=== PATIENT | female | born 1960 | race Caucasian/White ===

== ENCOUNTER 2016-11-21 21:26 | Inpatient (IN) | payer MEDICAID, OTHER, SELFPAY ==
[~2016-11-21] VITALS: Ht 167.6 cm; Wt 177.1 kg
[2016-11-21] MEDS ORDERED: ONDANSETRON 2MG/ML, 2ML IVPush ONE (22:00)
[2016-11-21] MEDS ORDERED: SODIUM CHLORIDE FLUSH 10ML SYR IVF ONE (22:00)
[2016-11-21] MEDS ORDERED: ONDANSETRON 2MG/ML, 2ML ONE (22:11)
[2016-11-21] MEDS ORDERED: MORPHINE SULFATE 4 MG/ML, 1ML ONE ×2 (22:11→22:42)
[2016-11-21 22:21] LABS: HEMATOCRIT 27.2 % (34.6-47.8); HEMOGLOBIN 8.8 g/dL (11.7-16.4); WHITE BLOOD COUNT 11.5 x10^3/uL (3.4-10)
[2016-11-21 22:24] LABS: BLOOD UREA NITROGEN 13 mg/dL (7-18)
[2016-11-21] MEDS: MORPHINE SULFATE 4 MG/ML, 1ML IVPush PRN ×2 (22:26→22:52)
[2016-11-21] MEDS ORDERED: OMNIPAQUE 350 MG/ML, 100ML BOTTLE ONE (23:34)
[2016-11-22] MEDS ORDERED: D5%-0.45% NACL 1,000 ML IV ONE (01:52)
[2016-11-22] MEDS ORDERED: ONDANSETRON 2MG/ML, 2ML IVPush PRN ×2 (02:00→05:30)
[2016-11-22] MEDS ORDERED: SODIUM CHLORIDE FLUSH 10ML SYR IVF PRN (02:00)
[2016-11-22] MEDS ORDERED: HYDROmorphone 1 MG/ML, 1ML IVPush PRN (02:00)
[2016-11-22] MEDS ORDERED: MORPHINE SULFATE 4 MG/ML, 1ML IVPush PRN (02:00)
[2016-11-22] MEDS ORDERED: MORPHINE SULFATE 4 MG/ML, 1ML ONE ×2 (02:32→19:43)
[2016-11-22] MEDS: MORPHINE SULFATE 4 MG/ML, 1ML IVPush PRN (02:37)
[2016-11-22] MEDS ORDERED: ACETAMINOPHEN 325 MG TABLET PO PRN (05:30)
[2016-11-22] MEDS ORDERED: POLYETHYLENE GLYCOL 17 GM PACKET PO PRN (05:30)
[2016-11-22] MEDS ORDERED: DOCUSATE 100 MG CAPSULE PO PRN (05:30)
[2016-11-22] MEDS: morphine SULFATE 10 MG/ML, 1ML IVPush PRN ×2 (05:51→19:50)
[2016-11-22] MEDS ORDERED: Enoxaparin 1 mg/kg protocol SQ SCH (07:00)
[2016-11-22 07:28] VITALS: BP 115/69
[2016-11-22] MEDS: SENNA/DOCUSATE TABLET PO SCH (08:54)
[2016-11-22] MEDS: INSULIN ASPART 100 UNITS/ML, PEN SQ-INSULIN SCH ×3 (08:54→21:00)
[2016-11-22] MEDS ORDERED: MIDAZOLAM 1 MG/ML, 5ML ONE (09:37)
[2016-11-22] MEDS ORDERED: FENTANYL PF 100 MCG/2ML ONE (09:37)
[2016-11-22] MEDS ORDERED: FLUMAZENIL 0.1 MG/1 ML, 5ML ONE (09:37)
[2016-11-22] MEDS ORDERED: NALOXONE 1 MG/ML, 2ML ONE (09:37)
[2016-11-22] MEDS ORDERED: LIDOCAINE 2%, 20ML ONE (10:20)
[2016-11-22 12:10] VITALS: BP 120/59
[2016-11-22] MEDS: SULFAMETH./TRIMETHOPRIM 20 ML in DEXTROSE 5% 500 ML IV SCH ×2 (12:50→21:29)
[2016-11-22] MEDS: DIPHENHYDRAMINE 25 MG CAPSULE PO PRN ×2 (13:54→21:29)
[2016-11-22] MEDS: HYDROcodone/APAP 5/325 TABLET PO PRN ×2 (17:29→22:47)
[2016-11-22 18:34] VITALS: BP 106/65
[2016-11-23] MEDS: morphine SULFATE 10 MG/ML, 1ML IVPush PRN ×5 (01:13→22:14)
[2016-11-23 01:47] VITALS: BP 106/66
[2016-11-23] MEDS: HYDROcodone/APAP 5/325 TABLET PO PRN ×4 (04:02→20:17)
[2016-11-23 05:17] LABS: HEMATOCRIT 24.9 % (34.6-47.8); HEMOGLOBIN 8.1 g/dL (11.7-16.4); WHITE BLOOD COUNT 9.5 x10^3/uL (3.4-10)
[2016-11-23 05:29] LABS: BLOOD UREA NITROGEN 11 mg/dL (7-18)
[2016-11-23] MEDS: INSULIN ASPART 100 UNITS/ML, PEN SQ-INSULIN SCH ×4 (07:00→20:20)
[2016-11-23 07:28] VITALS: BP 112/67
[2016-11-23] MEDS: DIPHENHYDRAMINE 25 MG CAPSULE PO PRN (08:14)
[2016-11-23] MEDS: SENNA/DOCUSATE TABLET PO SCH (08:14)
[2016-11-23] MEDS: LORazepam 1MG TABLET PO PRN (08:30)
[2016-11-23] MEDS: SULFAMETH./TRIMETHOPRIM 20 ML in DEXTROSE 5% 500 ML IV SCH ×2 (09:13→22:09)
[2016-11-23] MEDS: FENTANYL 50 MCG PATCH TD SCH (13:30)
[2016-11-23 13:34] VITALS: BP 123/68
[2016-11-23] MEDS: ENOXAPARIN 40 MG/0.4 ML SQ SCH (15:38)
[2016-11-23] MEDS ORDERED: DOCUSATE 100 MG CAPSULE PO PRN (16:30)
[2016-11-23] MEDS ORDERED: ACETAMINOPHEN 325 MG TABLET PO PRN (16:30)
[2016-11-23] MEDS ORDERED: POLYETHYLENE GLYCOL 17 GM PACKET PO PRN (16:30)
[2016-11-23 19:17] VITALS: BP 108/68
[2016-11-23] MEDS ORDERED: MORPHINE SULFATE 4 MG/ML, 1ML ONE (22:13)
[2016-11-24 01:36] VITALS: BP 114/71
[2016-11-24] MEDS: HYDROcodone/APAP 5/325 TABLET PO PRN (02:01)
[2016-11-24] MEDS ORDERED: MORPHINE SULFATE 4 MG/ML, 1ML ONE (03:31)
[2016-11-24] MEDS: morphine SULFATE 10 MG/ML, 1ML IVPush PRN (03:42)
[2016-11-24] MEDS: DIPHENHYDRAMINE 25 MG CAPSULE PO PRN (06:29)
[2016-11-24] MEDS: INSULIN ASPART 100 UNITS/ML, PEN SQ-INSULIN SCH ×4 (07:00→21:00)
[2016-11-24 07:18] VITALS: BP 132/74
[2016-11-24] MEDS: ONDANSETRON 2MG/ML, 2ML IVPush PRN ×2 (07:28→17:24)
[2016-11-24] MEDS: HYDROmorphone 2 MG/ML, 1ML IVPush PRN ×4 (07:43→23:00)
[2016-11-24] MEDS: SENNA/DOCUSATE TABLET PO SCH (07:48)
[2016-11-24] MEDS: GABAPENTIN 100 MG CAPSULE PO SCH ×3 (09:13→23:03)
[2016-11-24] MEDS: AMOXICILLIN/CLAV 875-125MG TABLET PO SCH ×2 (09:13→23:03)
[2016-11-24 14:46] VITALS: BP 139/75
[2016-11-24] MEDS: ENOXAPARIN 40 MG/0.4 ML SQ SCH (14:57)
[2016-11-24 18:45] VITALS: BP 125/71
[2016-11-25 01:09] VITALS: BP 117/69
[2016-11-25] MEDS: HYDROmorphone 2 MG/ML, 1ML IVPush PRN ×5 (04:59→21:38)
[2016-11-25 07:46] VITALS: BP 109/64
[2016-11-25] MEDS: INSULIN ASPART 100 UNITS/ML, PEN SQ-INSULIN SCH ×4 (07:57→21:31)
[2016-11-25] MEDS: ONDANSETRON 2MG/ML, 2ML IVPush PRN ×2 (07:58→18:34)
[2016-11-25] MEDS: GABAPENTIN 100 MG CAPSULE PO SCH ×3 (08:06→21:38)
[2016-11-25] MEDS: AMOXICILLIN/CLAV 875-125MG TABLET PO SCH ×2 (08:06→21:38)
[2016-11-25] MEDS: SENNA/DOCUSATE TABLET PO SCH (08:06)
[2016-11-25 14:54] VITALS: BP 116/71
[2016-11-25] MEDS: ENOXAPARIN 40 MG/0.4 ML SQ SCH (16:04)
[2016-11-25 20:35] VITALS: BP 109/69
[2016-11-26] MEDS: HYDROmorphone 2 MG/ML, 1ML IVPush PRN ×4 (03:19→20:43)
[2016-11-26 03:20] VITALS: BP 153/86
[2016-11-26] MEDS: LORazepam 1MG TABLET PO PRN (05:49)
[2016-11-26] MEDS: INSULIN ASPART 100 UNITS/ML, PEN SQ-INSULIN SCH ×4 (07:00→20:49)
[2016-11-26 07:23] VITALS: BP 120/71
[2016-11-26] MEDS: LACTULOSE 20 GM/30 ML UDC PO SCH ×2 (11:05→20:43)
[2016-11-26] MEDS: SENNA/DOCUSATE TABLET PO SCH (11:06)
[2016-11-26] MEDS: GABAPENTIN 100 MG CAPSULE PO SCH ×3 (11:06→20:43)
[2016-11-26] MEDS: AMOXICILLIN/CLAV 875-125MG TABLET PO SCH ×2 (11:07→20:43)
[2016-11-26 14:15] VITALS: BP 122/74
[2016-11-26] MEDS: FENTANYL 50 MCG PATCH TD SCH (14:54)
[2016-11-26] MEDS: ENOXAPARIN 40 MG/0.4 ML SQ SCH (17:16)
[2016-11-26 19:32] VITALS: BP 119/70
[2016-11-27 01:36] VITALS: BP 129/75
[2016-11-27] MEDS: HYDROmorphone 1 MG/ML, 1ML IV PRN ×4 (01:45→21:09)
[2016-11-27 05:18] LABS: HEMATOCRIT 23.4 % (34.6-47.8); HEMOGLOBIN 7.8 g/dL (11.7-16.4); WHITE BLOOD COUNT 12.6 x10^3/uL (3.4-10)
[2016-11-27 05:33] LABS: BLOOD UREA NITROGEN 15 mg/dL (7-18)
[2016-11-27 07:22] VITALS: BP 122/73
[2016-11-27] MEDS: GABAPENTIN 100 MG CAPSULE PO SCH ×3 (08:01→20:40)
[2016-11-27] MEDS: SENNA/DOCUSATE TABLET PO SCH (08:01)
[2016-11-27] MEDS: INSULIN ASPART 100 UNITS/ML, PEN SQ-INSULIN SCH ×4 (08:01→21:00)
[2016-11-27] MEDS: AMOXICILLIN/CLAV 875-125MG TABLET PO SCH ×2 (08:01→20:40)
[2016-11-27] MEDS: LACTULOSE 20 GM/30 ML UDC PO SCH ×2 (08:02→20:40)
[2016-11-27 14:22] VITALS: BP 117/77
[2016-11-27] MEDS: ENOXAPARIN 40 MG/0.4 ML SQ SCH (15:56)
[2016-11-27 19:01] VITALS: BP 117/71
[2016-11-28] VITALS (14 sets, daily range): BP systolic 109–149; BP diastolic 67–81
[2016-11-28] MEDS: HYDROmorphone 1 MG/ML, 1ML IV PRN ×4 (05:05→22:34)
[2016-11-28 05:43] LABS: HEMOGLOBIN 7.5 g/dL (11.7-16.4); WHITE BLOOD COUNT 9.7 x10^3/uL (3.4-10)
[2016-11-28 06:34] LABS: HEMATOCRIT 22.1 % (34.6-47.8)
[2016-11-28] MEDS: GABAPENTIN 100 MG CAPSULE PO SCH ×3 (08:00→20:29)
[2016-11-28] MEDS: LACTULOSE 20 GM/30 ML UDC PO SCH ×3 (08:00→20:38)
[2016-11-28] MEDS: INSULIN ASPART 100 UNITS/ML, PEN SQ-INSULIN SCH ×4 (08:00→20:24)
[2016-11-28] MEDS: AMOXICILLIN/CLAV 875-125MG TABLET PO SCH ×2 (08:00→20:28)
[2016-11-28] MEDS: SENNA/DOCUSATE TABLET PO SCH (08:00)
[2016-11-28] MEDS: FUROSEMIDE 40 MG/4 ML IV SCH (17:00)
[2016-11-28] MEDS: ENOXAPARIN 40 MG/0.4 ML SQ SCH (17:00)
[2016-11-29 02:29] VITALS: BP 127/70
[2016-11-29 02:35] VITALS: BP 127/70
[2016-11-29 04:30] LABS: HEMATOCRIT 29.5 % (34.6-47.8); HEMOGLOBIN 9.9 g/dL (11.7-16.4); WHITE BLOOD COUNT 10.8 x10^3/uL (3.4-10)
[2016-11-29 04:32] LABS: BLOOD UREA NITROGEN 20 mg/dL (7-18)
[2016-11-29] MEDS: HYDROmorphone 1 MG/ML, 1ML IV PRN ×4 (06:07→21:30)
[2016-11-29] MEDS: INSULIN ASPART 100 UNITS/ML, PEN SQ-INSULIN SCH ×4 (07:00→20:04)
[2016-11-29 08:51] VITALS: BP 111/70
[2016-11-29] MEDS: SENNA/DOCUSATE TABLET PO SCH (08:54)
[2016-11-29] MEDS: AMOXICILLIN/CLAV 875-125MG TABLET PO SCH ×2 (08:54→20:01)
[2016-11-29] MEDS: GABAPENTIN 100 MG CAPSULE PO SCH ×3 (08:54→20:01)
[2016-11-29] MEDS: FUROSEMIDE 40 MG/4 ML IV SCH ×2 (08:54→17:00)
[2016-11-29] MEDS: LACTULOSE 20 GM/30 ML UDC PO SCH ×2 (08:54→20:01)
[2016-11-29] MEDS: FENTANYL 50 MCG PATCH TD SCH (12:18)
[2016-11-29 14:43] VITALS: BP 124/75
[2016-11-29] MEDS: ENOXAPARIN 40 MG/0.4 ML SQ SCH (16:27)
[2016-11-29 19:13] VITALS: BP 91/57
[2016-11-29] MEDS ORDERED: ACETAMINOPHEN 325 MG TABLET PO PRN (20:30)
[2016-11-29] MEDS ORDERED: DIPHENHYDRAMINE 25 MG CAPSULE PO PRN (20:30)
[2016-11-29 21:00] VITALS: BP 121/74
[2016-11-30 01:52] VITALS: BP 128/78
[2016-11-30] MEDS: HYDROmorphone 1 MG/ML, 1ML IV PRN ×5 (01:59→22:26)
[2016-11-30 05:28] LABS: BLOOD UREA NITROGEN 20 mg/dL (7-18)
[2016-11-30 05:36] LABS: HEMATOCRIT 25.9 % (34.6-47.8); HEMOGLOBIN 8.7 g/dL (11.7-16.4); WHITE BLOOD COUNT 7.5 x10^3/uL (3.4-10)
[2016-11-30] MEDS: INSULIN ASPART 100 UNITS/ML, PEN SQ-INSULIN SCH ×4 (07:00→21:47)
[2016-11-30] MEDS: LACTULOSE 20 GM/30 ML UDC PO SCH ×2 (08:02→21:43)
[2016-11-30] MEDS: GABAPENTIN 100 MG CAPSULE PO SCH ×3 (08:02→21:43)
[2016-11-30] MEDS: FUROSEMIDE 40 MG/4 ML IV SCH ×2 (08:02→18:23)
[2016-11-30 08:03] VITALS: BP 108/66
[2016-11-30] MEDS: AMOXICILLIN/CLAV 875-125MG TABLET PO SCH ×2 (08:03→21:43)
[2016-11-30] MEDS: SENNA/DOCUSATE TABLET PO SCH (08:03)
[2016-11-30] MEDS: ENOXAPARIN 40 MG/0.4 ML SQ SCH (15:18)
[2016-11-30 15:19] VITALS: BP 113/69
[2016-11-30 18:49] VITALS: BP 118/75
[2016-12-01 01:20] VITALS: BP 124/75
[2016-12-01] MEDS: HYDROmorphone 1 MG/ML, 1ML IV PRN ×4 (04:42→20:00)
[2016-12-01 06:13] LABS: HEMATOCRIT 28.1 % (34.6-47.8); HEMOGLOBIN 9.5 g/dL (11.7-16.4); WHITE BLOOD COUNT 7.8 x10^3/uL (3.4-10)
[2016-12-01] MEDS: INSULIN ASPART 100 UNITS/ML, PEN SQ-INSULIN SCH ×4 (07:00→21:00)
[2016-12-01] MEDS: FUROSEMIDE 40 MG/4 ML IV SCH ×2 (07:37→16:55)
[2016-12-01 08:12] VITALS: BP 125/72
[2016-12-01] MEDS: AMOXICILLIN/CLAV 875-125MG TABLET PO SCH ×2 (09:22→20:00)
[2016-12-01] MEDS: LACTULOSE 20 GM/30 ML UDC PO SCH ×2 (09:22→20:00)
[2016-12-01] MEDS: GABAPENTIN 100 MG CAPSULE PO SCH ×3 (09:23→20:00)
[2016-12-01] MEDS: SENNA/DOCUSATE TABLET PO SCH (09:34)
[2016-12-01] MEDS: ENOXAPARIN 40 MG/0.4 ML SQ SCH (14:54)
[2016-12-01 15:07] VITALS: BP 124/71
[2016-12-01 19:02] VITALS: BP 121/69
[2016-12-01] MEDS: SULFAMETH./TRIMETHOPRIM DS 800MG/160MG TABLET PO SCH (20:00)
[2016-12-01] MEDS: ONDANSETRON 2MG/ML, 2ML IVPush PRN (20:18)
[2016-12-02] MEDS: HYDROmorphone 1 MG/ML, 1ML IV PRN ×4 (00:07→14:52)
[2016-12-02 03:03] VITALS: BP 110/67
[2016-12-02] MEDS: INSULIN ASPART 100 UNITS/ML, PEN SQ-INSULIN SCH ×4 (07:00→21:00)
[2016-12-02 08:00] VITALS: BP 129/68
[2016-12-02] MEDS: FUROSEMIDE 40 MG/4 ML IV SCH ×2 (08:13→17:01)
[2016-12-02] MEDS: GABAPENTIN 100 MG CAPSULE PO SCH ×3 (08:13→21:13)
[2016-12-02] MEDS: AMOXICILLIN/CLAV 875-125MG TABLET PO SCH ×2 (08:13→21:13)
[2016-12-02] MEDS: SULFAMETH./TRIMETHOPRIM DS 800MG/160MG TABLET PO SCH ×2 (08:14→21:13)
[2016-12-02] MEDS: SENNA/DOCUSATE TABLET PO SCH (08:14)
[2016-12-02] MEDS: LACTULOSE 20 GM/30 ML UDC PO SCH ×2 (08:19→21:00)
[2016-12-02] MEDS: FENTANYL 50 MCG PATCH TD SCH (13:00)
[2016-12-02 13:55] VITALS: BP 133/76
[2016-12-02] MEDS: ENOXAPARIN 40 MG/0.4 ML SQ SCH (16:45)
[2016-12-02] MEDS ORDERED: HYDROmorphone 1 MG/ML, 1ML IV PRN ×2 (17:30)
[2016-12-02 19:33] VITALS: BP 126/73
[2016-12-02] MEDS: OXYcodone IR 5MG TABLET PO PRN (22:05)
[2016-12-03 01:43] VITALS: BP 131/77
[2016-12-03] MEDS: OXYcodone IR 5MG TABLET PO PRN ×4 (01:47→19:55)
[2016-12-03] MEDS: SULFAMETH./TRIMETHOPRIM DS 800MG/160MG TABLET PO SCH ×2 (08:05→19:55)
[2016-12-03] MEDS: SENNA/DOCUSATE TABLET PO SCH (08:05)
[2016-12-03] MEDS: AMOXICILLIN/CLAV 875-125MG TABLET PO SCH ×2 (08:05→19:55)
[2016-12-03] MEDS: GABAPENTIN 100 MG CAPSULE PO SCH ×3 (08:05→19:55)
[2016-12-03] MEDS: FUROSEMIDE 40 MG/4 ML IV SCH ×3 (08:06→17:18)
[2016-12-03] MEDS: INSULIN ASPART 100 UNITS/ML, PEN SQ-INSULIN SCH ×4 (08:08→19:55)
[2016-12-03] MEDS: LACTULOSE 20 GM/30 ML UDC PO SCH ×2 (08:09→19:56)
[2016-12-03 08:14] VITALS: BP 113/72
[2016-12-03 14:02] VITALS: BP 126/75
[2016-12-03] MEDS: ONDANSETRON 2MG/ML, 2ML IVPush PRN ×2 (17:20→23:33)
[2016-12-03] MEDS ORDERED: ALBUMIN HUMAN 25% 100 ML IV ONE (19:30)
[2016-12-03] MEDS: ENOXAPARIN 40 MG/0.4 ML SQ SCH (19:55)
[2016-12-03 20:03] VITALS: BP 125/70
[2016-12-04 02:34] VITALS: BP 108/65
[2016-12-04] MEDS: OXYcodone IR 5MG TABLET PO PRN ×5 (03:36→21:41)
[2016-12-04 04:45] LABS: HEMATOCRIT 25.4 % (34.6-47.8); HEMOGLOBIN 8.5 g/dL (11.7-16.4); WHITE BLOOD COUNT 8.4 x10^3/uL (3.4-10)
[2016-12-04 04:59] LABS: BLOOD UREA NITROGEN 14 mg/dL (7-18)
[2016-12-04 05:04] LABS: ASPARTATE AMINO TRANSFERASE 51 U/L (15-37)
[2016-12-04] MEDS: INSULIN ASPART 100 UNITS/ML, PEN SQ-INSULIN SCH ×4 (07:09→20:34)
[2016-12-04 07:48] VITALS: BP 119/73
[2016-12-04] MEDS: SENNA/DOCUSATE TABLET PO SCH (08:44)
[2016-12-04] MEDS: LACTULOSE 20 GM/30 ML UDC PO SCH ×2 (08:44→20:40)
[2016-12-04] MEDS: AMOXICILLIN/CLAV 875-125MG TABLET PO SCH ×2 (08:44→20:39)
[2016-12-04] MEDS: GABAPENTIN 100 MG CAPSULE PO SCH ×3 (08:44→20:40)
[2016-12-04] MEDS: ONDANSETRON 2MG/ML, 2ML IVPush PRN ×2 (08:44→16:45)
[2016-12-04] MEDS: FUROSEMIDE 40 MG/4 ML IV SCH ×2 (08:44→21:00)
[2016-12-04] MEDS: SULFAMETH./TRIMETHOPRIM DS 800MG/160MG TABLET PO SCH ×2 (08:44→20:41)
[2016-12-04 12:52] VITALS: BP 116/68
[2016-12-04] MEDS: DOCUSATE 100 MG CAPSULE PO PRN (16:48)
[2016-12-04 19:52] VITALS: BP 105/63
[2016-12-04 20:29] LABS: BLOOD UREA NITROGEN 15 mg/dL (7-18)
[2016-12-04] MEDS: ENOXAPARIN 40 MG/0.4 ML SQ SCH (20:40)
[2016-12-04] MEDS ORDERED: MAGNESIUM SULFATE 4 GM in SODIUM CHLORIDE 0.9% 100 ML IV ONE (21:00)
[2016-12-04] MEDS ORDERED: MAGNESIUM SULFATE PMX 4GM/100M 100 ML IV ONE (21:15)
[2016-12-04] MEDS ORDERED: POTASSIUM CHLORIDE 40 MEQ in SODIUM CHLORIDE 0.9% 500 ML IV ONE (21:30)
[2016-12-05 02:24] VITALS: BP 112/61
[2016-12-05 04:16] LABS: HEMATOCRIT 25.8 % (34.6-47.8); HEMOGLOBIN 8.6 g/dL (11.7-16.4); WHITE BLOOD COUNT 9.6 x10^3/uL (3.4-10)
[2016-12-05 04:23] LABS: BLOOD UREA NITROGEN 15 mg/dL (7-18)
[2016-12-05] MEDS: OXYcodone IR 5MG TABLET PO PRN ×4 (05:14→20:24)
[2016-12-05] MEDS: INSULIN ASPART 100 UNITS/ML, PEN SQ-INSULIN SCH ×4 (07:25→20:18)
[2016-12-05] MEDS ORDERED: MAGNESIUM SULFATE PMX 4GM/100M 100 ML IV ONE (07:30)
[2016-12-05] MEDS ORDERED: POTASSIUM CHLORIDE 20 MEQ TAB.ER.PRT PO ONE ×2 (07:30→13:00)
[2016-12-05] MEDS: DOCUSATE 100 MG CAPSULE PO PRN (09:03)
[2016-12-05] MEDS: LACTULOSE 20 GM/30 ML UDC PO SCH ×2 (09:03→20:25)
[2016-12-05] MEDS: SENNA/DOCUSATE TABLET PO SCH (09:03)
[2016-12-05] MEDS: SULFAMETH./TRIMETHOPRIM DS 800MG/160MG TABLET PO SCH ×2 (09:03→20:18)
[2016-12-05] MEDS: GABAPENTIN 100 MG CAPSULE PO SCH ×3 (09:03→20:18)
[2016-12-05] MEDS: AMOXICILLIN/CLAV 875-125MG TABLET PO SCH ×2 (09:03→20:18)
[2016-12-05] MEDS: FUROSEMIDE 40 MG/4 ML IV SCH (09:07)
[2016-12-05 09:31] VITALS: BP 113/61
[2016-12-05] MEDS: ONDANSETRON 2MG/ML, 2ML IVPush PRN (10:25)
[2016-12-05 13:28] VITALS: BP 123/67
[2016-12-05] MEDS: FENTANYL 50 MCG PATCH TD SCH (14:31)
[2016-12-05] MEDS ORDERED: DIPHENHYDRAMINE 25 MG CAPSULE PO PRN (19:00)
[2016-12-05] MEDS ORDERED: ONDANSETRON ODT 4 MG PO PRN (19:00)
[2016-12-05 19:25] VITALS: BP 126/66
[2016-12-05] MEDS ORDERED: METHYLNALTREXONE 12 MG/0.6 ML SQ ONE (20:00)
[2016-12-05] MEDS: ENOXAPARIN 40 MG/0.4 ML SQ SCH (20:17)
[2016-12-06 02:33] VITALS: BP 113/57
[2016-12-06 04:29] LABS: HEMATOCRIT 25.1 % (34.6-47.8); HEMOGLOBIN 8.4 g/dL (11.7-16.4); WHITE BLOOD COUNT 11.9 x10^3/uL (3.4-10)
[2016-12-06 04:32] LABS: BLOOD UREA NITROGEN 14 mg/dL (7-18)
[2016-12-06 04:35] LABS: ASPARTATE AMINO TRANSFERASE 54 U/L (15-37)
[2016-12-06] MEDS: OXYcodone IR 5MG TABLET PO PRN ×2 (04:58→21:00)
[2016-12-06] MEDS: INSULIN ASPART 100 UNITS/ML, PEN SQ-INSULIN SCH ×4 (07:00→21:00)
[2016-12-06] MEDS: SENNA/DOCUSATE TABLET PO SCH (09:00)
[2016-12-06] MEDS: SULFAMETH./TRIMETHOPRIM DS 800MG/160MG TABLET PO SCH ×2 (09:00→20:54)
[2016-12-06] MEDS: GABAPENTIN 100 MG CAPSULE PO SCH ×3 (09:00→20:54)
[2016-12-06] MEDS: LACTULOSE 20 GM/30 ML UDC PO SCH ×2 (09:00→20:53)
[2016-12-06] MEDS: AMOXICILLIN/CLAV 875-125MG TABLET PO SCH ×2 (09:00→20:53)
[2016-12-06 09:51] VITALS: BP 135/65
[2016-12-06 13:40] VITALS: BP 111/66
[2016-12-06 19:50] VITALS: BP 121/68
[2016-12-06] MEDS: ENOXAPARIN 40 MG/0.4 ML SQ SCH (20:54)
[2016-12-07 02:23] VITALS: BP 109/65
[2016-12-07 05:06] LABS: HEMATOCRIT 26.1 % (34.6-47.8); HEMOGLOBIN 8.7 g/dL (11.7-16.4); WHITE BLOOD COUNT 14.6 x10^3/uL (3.4-10)
[2016-12-07 05:15] LABS: BLOOD UREA NITROGEN 13 mg/dL (7-18)
[2016-12-07] MEDS: INSULIN ASPART 100 UNITS/ML, PEN SQ-INSULIN SCH ×2 (07:32→11:42)
[2016-12-07 07:47] VITALS: BP 125/72
[2016-12-07] MEDS: SENNA/DOCUSATE TABLET PO SCH (08:30)
[2016-12-07] MEDS: GABAPENTIN 100 MG CAPSULE PO SCH (08:30)
[2016-12-07] MEDS: AMOXICILLIN/CLAV 875-125MG TABLET PO SCH (08:31)
[2016-12-07] MEDS: SULFAMETH./TRIMETHOPRIM DS 800MG/160MG TABLET PO SCH (08:31)
[2016-12-07] MEDS: LACTULOSE 20 GM/30 ML UDC PO SCH (08:31)
[2016-12-07] MEDS ORDERED: CHOL10003 PO (14:43)
[2016-12-07] MEDS ORDERED: GABA-826 PO (14:43)
[2016-12-07] MEDS ORDERED: SENN1TAB7 PO (14:43)
[2016-12-07] MEDS ORDERED: FENT1PAT76 TD (14:43)
[2016-12-07] MEDS ORDERED: OXYC5TAB3 PO (14:43)
[2016-12-07] MEDS ORDERED: AMOX1TAB12 PO (14:43)
[2016-12-07] MEDS ORDERED: ONDA4TAB13 PO (14:43)
[2016-12-08] MEDS ORDERED: CHOLECALCIFEROL 1,000 UNIT TABLET PO SCH (09:00)
== END 2016-12-07 16:05 | disposition home or self-care (01) | DRG 754 ==
LOC: ED 23:17 → EDIP 11-22 01:50 → 3NW 11-22 02:43
PROVIDERS: ADMIT Family Medicine; ATTEND Internal Medicine
PROC: 0JBC3ZX Excision of Pelvic Region Subcutaneous Tissue and Fascia, Percutaneous Approach, Diagnostic (ICD-10-PCS; principal; 2016-11-22)
PROC: 30233N1 Transfusion of Nonautologous Red Blood Cells into Peripheral Vein, Percutaneous Approach (ICD-10-PCS; 2016-11-28)
DX: C54.1 Malignant neoplasm of endometrium (principal); E43 Unspecified severe protein-calorie malnutrition; I71.01 Dissection of thoracic aorta; D68.69 Other thrombophilia; R18.8 Other ascites; L03.116 Cellulitis of left lower limb; K56.7 Ileus, unspecified; R17 Unspecified jaundice; Z68.44 Body mass index [BMI] 60.0-69.9, adult; J98.11 Atelectasis; D63.0 Anemia in neoplastic disease; E66.01 Morbid (severe) obesity due to excess calories; E11.9 Type 2 diabetes mellitus without complications; S50.812A Abrasion of left forearm, initial encounter; W18.39XA Other fall on same level, initial encounter; E55.9 Vitamin D deficiency, unspecified; G89.3 Neoplasm related pain (acute) (chronic); K42.9 Umbilical hernia without obstruction or gangrene; Z51.5 Encounter for palliative care; Z79.01 Long term (current) use of anticoagulants; Z83.3 Family history of diabetes mellitus; Z85.42 Personal history of malignant neoplasm of other parts of uterus; Z85.43 Personal history of malignant neoplasm of ovary; Z86.14 Personal history of Methicillin resistant Staphylococcus aureus infection; Z86.718 Personal history of other venous thrombosis and embolism; Z92.3 Personal history of irradiation; Z92.21 Personal history of antineoplastic chemotherapy; Z90.710 Acquired absence of both cervix and uterus; Z90.49 Acquired absence of other specified parts of digestive tract; Z89.429 Acquired absence of other toe(s), unspecified side; Y93.89 Activity, other specified; Y92.098 Other place in other non-institutional residence as the place of occurrence of the external cause; Y99.8 Other external cause status
CPT/HCPCS: 36415; 49180; 71010; 71260; 74177; 77012; 80048; 80053; 81001; 82040; 82306; 82962; 83735; 85025; 86850; 86900; 86923; 87086; 88305; 88341; 88342; 93005; 93970; 96374; 96375; 99156; 99157; J1170; J1650; J1815; J1940; J2250; J2405; J3010; J3480; J3490; P9047; Q0162; Q9967; G0461; J2270; J2310; J3475; J7040; J7060; P9016; Q0163